=== PATIENT | male | born 1950 | race Caucasian/White ===

== ENCOUNTER 2018-12-04 09:36 | Inpatient (IN) | payer OTHER ==
[~2018-12-04] VITALS: Ht 182.9 cm; Wt 99.9 kg
[2019-01-18] VITALS (12 sets, daily range): BP systolic 117–156; BP diastolic 53–68; PULSE 62–81; TEMP 97.9–98.8
[2019-01-18] MEDS ORDERED: EPA FISH OIL1 SGL PO (07:31)
[2019-01-18] MEDS ORDERED: COZAAR 25MG25 MG/TAB PO (07:31)
[2019-01-18] MEDS ORDERED: NIACIN1000 MG PO (07:32)
[2019-01-18] MEDS ORDERED: TENORMIN 2525 MG/TAB PO (07:32)
[2019-01-18] MEDS ORDERED: ASPIRIN E.C. 8181 MG PO (07:32)
[2019-01-18] MEDS ORDERED: PROSCAR 5MG5 MG PO (07:33)
[2019-01-18] MEDS ORDERED: ZOLOFT 100MG100 MG PO (07:33)
[2019-01-18] MEDS ORDERED: FLOMAX 0.40.4 MG/CAP PO (07:33)
[2019-01-18] MEDS ORDERED: PRIL40 PO (07:33)
[2019-01-18] MEDS ORDERED: DESYREL DIVIDO300 MG PO (07:34)
--- NOTE | 2019-01-18 11:31 | NUR ---
CHELO met with the patient and his family to discuss a discharge plan. The patient lives in [place] with his . The patient has a walker and a cane in case he needs them and reports independence with ADLs. The patient's PCP is Dr. Marilee Dumont and patient receives medications via mail from the [facility] and at [facility] in [place] with no difficulties. The patient does not have advanced directives in the EMR and was not interested in obtaining a DPOA-HC. The patient plans to return home upon discharge with is providing transportation. There are no additional needs at this time.
--- NOTE | 2019-01-18 14:21 | NUR ---
Lying in bed with eyes closed, no signs or symptoms of distress. Awakens when name is called out. Denies any pain. Dressing to left hip clean, dry, and intact. Tolerating a small amount of PO liquids, is drowsy. Patient denies further needs at this time. Family at bedside.
--- NOTE | 2019-01-18 16:29 | NUR ---
Remains lying in bed, arouses when name called. Patient continues to be drowsy. Discussed with the patient that when he awakens more we will be able to advance his diet more. Patient verbalizes understanding. Reports no pain in left hip/leg. at bedside. Patient goes back to sleep.
--- NOTE | 2019-01-18 17:47 | NUR ---
Patient sitting up in bed, awake and alert. Explained to the patient that we have advanced his diet to a general diet and explained process to order food. Patient denies pain in hip, having some pain in knee. Denies further needs at this time. in room with patient.
--- NOTE | 2019-01-18 18:32 | NUR ---
Sitting up in bed. Rates pain 6/10 in left hip. Scheduled Tylenol administered at this time. Patient also repositioned in bed and said that helped alleviate some of his pain. Patient and spouse said that they ordered supper and they are awaiting it to arrive. Dressing to left hip clean, dry, and intact. Patient denies further needs.
--- NOTE | 2019-01-18 19:30 | NUR ---
Pt. sitting up in bed with at bedside. Pt. is A&OX3, assessment complete. IV to lt. wrist patent, IV fluids infusing per orders. Bulky dressing to lt. hip CDI. Loving cath to DD, Wiseman yellow urine noted. Pt. denies needs a this time. Call light within reach.
[2019-01-19 03:18] VITALS: BP 138/56; PULSE 64; TEMP 98.1
[2019-01-19 06:39] LABS: HEMOGLOBIN 11.9 g/dl (13.5-18.0)
--- NOTE | 2019-01-19 06:46 | NUR ---
Report from Davey P[place].
[2019-01-19 07:14] LABS: HEMATOCRIT 33.9 % (42.0-52.0)
[2019-01-19 07:43] VITALS: BP 117/51; PULSE 74; TEMP 98
--- NOTE | 2019-01-19 09:01 | NUR ---
pt up to recliner for breakfast. pain well controlled with po meds at this time. Tramadol given and effective per patient report. Pt's reported mild confusion this am.
[2019-01-19 11:15] VITALS: BP 136/52; PULSE 64; TEMP 97.5
--- NOTE | 2019-01-19 13:22 | NUR ---
DRESSING CHANGE COMPLETED AQUACEL PLACED OVER INCISION PT TOLERATED WELL, STERI STRIPS INPLACE AND EDGES WELL APPROXIMATED.
--- NOTE | 2019-01-19 14:53 | NUR ---
PT IMPULSIVE IN ROOM THIS PM. GETS UP WITH OUT CALLING AND DOES NOT USE WALKER. UNSTEADY GAIT. BED ALARM PLACED.
[2019-01-19 16:04] VITALS: BP 128/62; PULSE 64; TEMP 97.3
[2019-01-19 20:00] VITALS: BP 135/53; PULSE 71; TEMP 97.4
--- NOTE | 2019-01-19 20:40 | NUR ---
Pt. sitting up in bed at this time. Pt. is A&OX3, assessment complete. INT to lt. hand patent. Pt. reports pain at a 3 on pain scale at this time. Pt. assisted up to bathroom and the ambulated halls with standby assist. Dressing to lt. hip CDI. Pt. denies further needs, call light within reach.
[2019-01-20 04:17] VITALS: BP 138/59; PULSE 70; TEMP 98.2
--- NOTE | 2019-01-20 05:12 | NUR ---
Pt. slept well through the night. Pt. remains A&OX3. INT to lt. hand patent. Pt. denies pain or other needs, call light within reach.
[2019-01-20 06:44] LABS: HEMOGLOBIN 11.5 g/dl (13.5-18.0)
[2019-01-20 06:54] LABS: CALCIUM 9.1 mg/dL (8.4-10.2); CREATININE, serum 0.69 (0.66-1.25); HEMATOCRIT 34.4 % (42.0-52.0); POTASSIUM 4.3 mmol/L (3.4-5.0)
[2019-01-20 07:24] VITALS: BP 122/60; PULSE 73; TEMP 98.9
--- NOTE | 2019-01-20 08:34 | NUR ---
PT UP TO RECLINER FOR BREAKFAST. PT IS A/O X3 THIS AM. PO TYLENOL USED FOR PAIN CONTROLL HAS KEPT PT ORIENTED BETTER TODAY. PLAN ON DISCHARGE HOME LATER TODAY. DRESSING TO RIGHT HIP CDI.
[2019-01-20] MEDS ORDERED: ASPI325T6 PO (08:42)
[2019-01-20] MEDS ORDERED: ULTRAM 50MG TAB50 MG PO (08:42)
[2019-01-20] MEDS ORDERED: TYLENOL 500MG500 MG PO (08:43)
--- NOTE | 2019-01-20 10:05 | NUR ---
DISCHARGE INSTRUCTIONS PROVIDED TO PATIENT AND QUESTIONS SOLICITED AND ANSWERED. PT TAKEN TO CAR IN WHEEL CHAIR BY STAFF.
== END 2019-01-20 10:06 | disposition home or self-care (01) | DRG 470 ==
LOC: JCC 01-18 06:38
PROVIDERS: ADMIT Orthopaedic Surgery
PROC: 0SRB0JA Replacement of Left Hip Joint with Synthetic Substitute, Uncemented, Open Approach (ICD-10-PCS; principal; 2019-01-18 10:30)
DX: M16.12 Unilateral primary osteoarthritis, left hip (principal); J44.9 Chronic obstructive pulmonary disease, unspecified; I10 Essential (primary) hypertension; I25.2 Old myocardial infarction; M06.9 Rheumatoid arthritis, unspecified; Z87.891 Personal history of nicotine dependence; Z95.1 Presence of aortocoronary bypass graft; I25.10 Atherosclerotic heart disease of native coronary artery without angina pectoris
CPT/HCPCS: A4314; A9284; C1713; C1776; J0360; J0690; J1100; J2250; J2405; J2704; J3010; J7030; J7120

== ENCOUNTER → 2019-01-07 | Outpatient (CLI) | payer OTHER | LOC: COL.LAB 12:05 | DX: Z01.812 Encounter for preprocedural laboratory examination (principal) ==

== ENCOUNTER → 2020-11-15 | Outpatient (CLI) | payer OTHER ==
[~2020-11-15] MED LIST: ASPI325T6 PO; ASPIRIN E.C. 8181 MG PO; COZAAR 25MG25 MG/TAB PO; DESYREL DIVIDO300 MG PO; EPA FISH OIL1 SGL PO; FLOMAX 0.40.4 MG/CAP PO; NIACIN1000 MG PO; PRIL40 PO; PROSCAR 5MG5 MG PO; TENORMIN 2525 MG/TAB PO; TYLENOL 500MG500 MG PO; ULTRAM 50MG TAB50 MG PO; ZOLOFT 100MG100 MG PO
== END ==
LOC: ZCOL.LAB 13:41
DX: R07.9 Chest pain, unspecified (principal)